=== PATIENT | male | born 1985 | race Caucasian/White ===

== ENCOUNTER → 2017-02-17 | Outpatient (CLI) | payer BC ==
[2017-02-17 10:16] LABS: BASOPHILS % (AUTO) 0.4 % (0-2); EOSINOPHILS % (AUTO) 0.9 % (0-4); HCT - HEMATOCRIT 47.4 % (41-53); HGB - HEMOGLOBIN 15.7 GM/DL (13.5-17.5); IMMATURE GRANULOCYTE # (AUTO) 0.01 T/MM3 (0.00-0.03); IMMATURE GRANULOCYTE % (AUTO) 0.2 % (0.0-0.5); LYMPHOCYTES # (AUTO) 1.2 T/MM3 (1-4.8); LYMPHOCYTES % (AUTO) 27.6 % (23-45); MEAN CORPUSCULAR HGB 29.6 UUG (26-34); MEAN CORPUSCULAR HGB CONC(MCHC 33.1 GM/DL (31-37); MEAN CORPUSCULAR VOLUME 89.4 UM3 (80-100); MEAN PLATELET VOLUME 10.4 UM3 (9.4-12.4); MONOCYTES # (AUTO) 0.3 T/MM3 (0-0.8); MONOCYTES % (AUTO) 5.6 % (0-9.0); NEUTROPHILS #(AUTO)-ABSOLUTE 2.9 T/MM3 (1.8-7.7); NEUTROPHILS % (AUTO) 65.3 % (33-66); WBC - WHITE BLOOD COUNT 4.5 T/MM3 (4.5-11.0)
[2017-02-17 10:26] LABS: ALBUMIN/GLOBULIN RATIO 1.5 RATIO (1.1-2.2); ALKALINE PHOSPHATASE 74 U/L (38-126); ALT (SGPT) 44 U/L (21-72); ANION GAP 15 MEQ/L (5-15); AST (SGOT) 36 U/L (17-59); BUN/CREATININE RATIO 16 RATIO (6-26); CALCIUM 9.6 MG/DL (8.4-10.2); CHLORIDE 102 MEQ/L (98-107); CO2 - CARBON DIOXIDE 29 MEQ/L (22-30); CREATININE 0.7 MG/DL (0.8-1.5); GLOMERULAR FILTRATION RATE 133; GLUCOSE 92 MG/DL (75-110); SODIUM 146 MEQ/L (134-144); TOTAL PROTEIN 8.4 G/DL (6.3-8.2)
--- NOTE | 2017-02-17 10:36 | DI ---
Indication: ITS.REASON: R07.9 CHEST PAIN, UNSPECIFIED CHEST, PA LATERAL: Comparison: None Technique: PA and lateral chest Findings: Patient shows normal heart, mediastinum and central vascularity. Lungs are clear. No acute bony findings. Patient seemed to show a large volume of stool the bowel representing constipation. Impression: 1. No acute cardiopulmonary findings. 2. Significant constipation. .
[2017-02-17 10:56] LABS: THYROID STIM HORMONE-TSH 0.76 MIU/L (0.47-4.68)
[2017-02-21 01:00] LABS: LDL CHOLESTEROL,CALCULATED 127.6 (66-159); RISK FACTOR 3.8 RATIO (0-5.0); VLDL CHOLESTEROL 18.4 MG/DL (0-28)
== END ==
LOC: IMA 09:29
PROVIDERS: ATTEND Family Medicine
DX: R07.9 Chest pain, unspecified (principal)
CPT/HCPCS: 36415; 80053; 80061; 84439; 84443; 85025; 93005